=== PATIENT | male | born 1975 | race Caucasian/White ===

== ENCOUNTER → 2016-05-12 23:55 | Emergency (ER) | payer OTHER ==
[~2016-05-12 23:55] MED LIST: ACETAMINOPHEN PO; DAKIN'S473 M1 MC; NO MEDICATIONS; ORUDIS75 M1 PO; OXYCODONE HCL5 MG PO; ZYVOX600 MG PO
== END | disposition left against medical advice (07) ==
LOC: CED 23:55
DX: Z53.21 Procedure and treatment not carried out due to patient leaving prior to being seen by health care provider (principal)

== ENCOUNTER 2016-05-13 02:09 | Emergency (ER) | payer OTHER | END 2016-05-13 04:00 | disposition left against medical advice (07) | LOC: CED 02:09 | DX: Z53.21 Procedure and treatment not carried out due to patient leaving prior to being seen by health care provider (principal) ==